=== PATIENT | male | born 1955 | race Caucasian/White ===

== ENCOUNTER 2021-02-02 06:39 | Day surgery (SDC) | payer OTHER ==
[2021-02-02] MEDS ORDERED: Propofol 200 MG/20 ML SDV ONE (07:28)
[2021-02-02] MEDS ORDERED: fentaNYL 100 MCG/2 ML SDV ONE (07:29)
[2021-02-02] MEDS ORDERED: Midazolam 1 MG/ML 2 ML SDV ONE (07:29)
[2021-02-02] MEDS ORDERED: Sodium Chloride 0.9% 1,000 ML IV SCH (07:30)
--- NOTE | 2021-02-03 06:29 | OR ---
DATE OF PROCEDURE: 02/02/2021 SURGEON: River Martell MD PROCEDURE: Colonoscopy. FINDINGS: Normal colonoscopy. PREOPERATIVE DIAGNOSIS: Family history of colorectal cancer. POSTOPERATIVE DIAGNOSIS: Family history of colorectal cancer. RISKS: Risks, benefits, alternatives, limitations including, but not limited to infection, bleeding, perforation, false positives and false negatives were explained to the patient and they wished to proceed. PROCEDURE IN DETAIL: The patient was placed in left lateral decubitus position. Digital rectal exam was performed without abnormality. Scope was introduced and advanced atraumatically to the ileocecal valve. A photo was taken of the appendiceal orifice. The scope was brought back to the ascending, transverse, descending colon, and retroflexed. No evidence of old or new blood. No masses. No polyps. No diverticulosis. Greater than 8 minutes was spent removing the scope. The prep was marginal with approximately 85% to 90% of the luminal surface could be seen with some areas of lesser visualization of 6 mm polyps. The patient tolerated procedure well. River Martell MD /[id number]
== END 2021-02-02 09:43 | disposition home or self-care (01) ==
LOC: JP.SDS 06:39
PROVIDERS: ATTEND Surgery
DX: Z12.11 Encounter for screening for malignant neoplasm of colon (principal); Z80.0 Family history of malignant neoplasm of digestive organs; I10 Essential (primary) hypertension; E11.9 Type 2 diabetes mellitus without complications
CPT/HCPCS: 45378; J2250; J2704; J3010; J7030